=== PATIENT | male | born 1935 | race Caucasian/White ===

== ENCOUNTER 2017-01-26 19:50 | Emergency (ER) | payer OTHER ==
[~2017-01-26 19:50] MED LIST: ADV250/50 INH; AMIODARONE HCL200 MG PO; AMLODIPINE5 M1 PO; ATROVENT H0.017 MG/1 INH; AZITHROMYCIN250 M1 PO; CLOPIDOGREL75 M1 PO; COZ50 PO; ECO81 PO; LAC PO; LEVAQUIN750 MG PO; LEVOFLOXACIN500 M1 PO; MEDDP PO; METFORMIN HCL850 MG PO; METOPROLOL TART25 M1 PO; NOR5 PO; PRI20 PO; PRILOSEC20 MG PO; PROINH; PROPECIA1 MG PO; SIMVASTATIN40 M1 PO; SING10 PO; TUDORZA PR400 MCG/A1 IH; ZOC20 PO
[2017-01-27 00:26] LABS: BASOPHIL % 0.8 % (0-2); PLATELET COUNT 321 x10^3mcL (130-400)
[2017-01-27 00:32] LABS: CALCIUM 9.4 mg/dL (8.5-10.1); CARBON DIOXIDE 26.4 mmol/L (21-32); CHLORIDE SERUM 106 mmol/L (98-107); CREATININE SERUM 1.9 mg/dL (0.7-1.3); GLUCOSE SERUM 138 mg/dL (74-106); POTASSIUM SERUM 4.1 mmol/L (3.5-5.1); SODIUM SERUM 142 mmol/L (136-145)
[2017-01-27 00:37] LABS: ALBUMIN 4.4 g/dL (3.4-5.0); ALKALINE PHOSPHATASE 59 U/L (46-116); ALT/SGPT 26 U/L (16-63); AST/SGOT 26 U/L (15-37); BILIRUBIN TOTAL 0.4 mg/dL (0.20-1.00); TOTAL PROTEIN, SERUM 8.1 g/dL (6.4-8.2)
[2017-01-27 00:54] LABS: RED CELL DISTRIBUTION WIDTH 14.9 % (11.5-14.5)
[2017-01-27 03:13] VITALS: BP 117/67
== END 2017-01-27 03:13 | disposition home or self-care (01) ==
LOC: ED 19:50
PROVIDERS: Emergency Medicine
DX: J44.1 Chronic obstructive pulmonary disease with (acute) exacerbation (principal); I10 Essential (primary) hypertension
CPT/HCPCS: 36600; J7512; J7613; J7644